=== PATIENT | male | born 1990 | race African-American/Black ===

== ENCOUNTER 2019-06-24 21:12 | Emergency (ER) | payer OTHER ==
[~2019-06-24] VITALS: Ht 188 cm; Wt 81.7 kg
[2019-06-24 22:06] LABS: ABSOLUTE BASOPHILS 0.1 thou/uL (0.0-0.2); ABSOLUTE EOSINOPHILS 0.1 thou/uL (0.0-0.7); ABSOLUTE LYMPHOCYTES 2.4 thou/uL (0.8-5.3); ABSOLUTE MONOCYTES 0.7 thou/uL (0.0-1.2); ABSOLUTE NEUTROPHILS 6.1 thou/uL (1.6-8.1); BASOPHILS 0.9 %; EOSINOPHILS 0.9 %; HEMATOCRIT 41.4 % (42.0-52.0); HEMOGLOBIN 13.9 gm/dL (14.0-18.0); LYMPHOCYTES 25.9 %; MCHC 33.5 g/dL (28.0-37.0); MCV 89.6 fL (80.0-100.0); MONOCYTES 7.3 %; MPV 7.1 fl. (7.2-11.1); NUCLEATED RBCS 0 /100WBC; PLATELET COUNT* 293 thou/uL (150-400); RBC 4.62 mil/uL (4.50-6.00); RDW-CV 14.2 % (10.5-14.5); WBC 9.4 thou/uL (4.0-11.0)
[2019-06-24 22:08] LABS: CALCIUM 9.2 mg/dL (8.5-10.1); CREATININE 1.4 mg/dL (0.6-1.3); POTASSIUM 3.9 mmol/L (3.5-5.1)
[2019-06-24 23:29] VITALS: BP 133/88
== END 2019-06-24 23:31 | disposition home or self-care (01) ==
LOC: M.ERS 21:12
PROVIDERS: Nurse Practitioner Family
DX: E86.0 Dehydration (principal); R55 Syncope and collapse